=== PATIENT | male | born 1985 | race Hispanic/Latino ===

== ENCOUNTER 2018-05-14 18:40 | Emergency (ER) | payer OTHER ==
[2018-05-14] MEDS ORDERED: IBUPROFEN 600 MG TABLET ONE (19:12)
== END 2018-05-14 19:44 | disposition home or self-care (01) ==
LOC: EDH 18:40
DX: S67.22XA Crushing injury of left hand, initial encounter (principal); W23.0XXA Caught, crushed, jammed, or pinched between moving objects, initial encounter; Y93.89 Activity, other specified; Y92.89 Other specified places as the place of occurrence of the external cause; Y99.8 Other external cause status
CPT/HCPCS: 73130